=== PATIENT | male | born 1980 | race Caucasian/White ===

== ENCOUNTER 2021-05-24 14:39 | Emergency (ER) | payer OTHER, SELFPAY ==
--- NOTE | ~2021-05-24 | CT_ITS ---
EXAMINATION: CT brain wo con EXAM DATE: 05/24/2021 15:45 INDICATION: Headache, hypertensive. TECHNIQUE: Spiral CT of the head was performed without contrast. Axial, coronal and sagittal images were reviewed. The dose-length product (DLP) for this examination was 605.33 mGy-cm. The exposure w as tailored according to patient size, and iterative reconstruction (ASIR) was used as additional dos e reduction technique. Comparison is made to prior examination from 07/05/2012. FINDINGS: There is no acute intraparenchymal hemorrhage. No evidence of intraparenchymal brain mass lesion. No evidence of acute infarction. There is no mass effect or midline shift. The ventricles are normal in size. There are no extra-axial collections. There are no acute calvarial fractures. T he orbits are unremarkable. Soft tissue is unremarkable. The visualized sinuses and mastoid air ning ls are well aerated. IMPRESSION: 1. No acute intracranial findings. Reviewed, dictated and finalized at location G. T BROKER
[2021-05-24 14:42] VITALS: BP 153/80; PULSE 85; RESP 16; TEMP 36.8; O2SAT 99
--- NOTE | 2021-05-24 14:55 | ED.HA ---
HPI - Headache General Chief Complaint: Headache Stated Complaint: feels bells palsy is acting up Time Seen by Provider: 05/24/21 14:41 History of Present Illness HPI Narrative: 40-year-old male presents to the emergency room with complaints of left facial pain that has been present for 4 days. States pain radiates to jaw, ear, and behind left eye following the distribution of the trigeminal nerve. Pain is worse with palpation. 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 Denies headache denies vision changes denies rhinorrhea. Pain is worse with mastication Related Data Home Medications Medication Instructions Recorded Confirmed albuterol sulfate 90 mcg/actuation 2 puff INHALATION Q4H PRN gm 02/18/19 02/18/19 aerosol inhaler Allergies Allergy/AdvReac Type Severity Reaction Status Date / Time Penicillins Allergy Intermediate SWELLING Verified 08/28/19 16:31 IN EAR CANALS Review of Systems Review of Systems: CONSTITUTIONAL: Denies fever, chills, or sweats. EYES: Denies visual changes, redness, or discharge. ENT: Denies rhinorrhea, congestion, sore throat, or otalgia. CARDIOVASCULAR: Denies chest pain, palpitations, or edema. RESPIRATORY: Denies cough or dyspnea. GASTROINTESTINAL: Denies abdominal pain, nausea, vomiting, or diarrhea. GENITOURINARY: Denies dysuria or hematuria. SKIN: Denies rash or itching. MUSCULOSKELETAL: Denies back pain, joint pain, or myalgia. NEUROLOGIC: Denies headache, numbness, dizziness, or weakness. PSYCHIATRIC: Denies anxiety or depression. PMFSH Past Medical History Medical History Family history of colon cancer in mother Surgical History Surgical History History of appendectomy -2016 Hx of tonsillectomy 1982 Family History Family History Father Acute myocardial infarction, Onset Age: 47 Mother Carcinoma of colon, Onset Age: 37 Social History Social History Smoking status: Former smoker Alcohol intake: current Exam Narrative: GENERAL: Well-appearing, well-nourished, and in no acute distress. HEAD: Normocephalic, atraumatic. EYES: PERRLA and EOMI. ENT: Nares clear, no rhinorrhea or epistaxis. Mucous membranes moist. Oropharynx without tonsillar hypertrophy exudate or other lesions. Bilateral TMs pearly franco nonbulging. Left postauricular tenderness. NECK: Supple. No adenopathy or masses. No carotid bruits or JVD CHEST: Clear to auscultation. No respiratory distress. No wheezes rales or rhonchi HEART: Regular rate and rhythm. No murmur heard. Normal peripheral pulses. ABDOMEN: Soft, nontender, nondistended, normal active bowel sounds. EXTREMITIES: Normal range of motion. No edema. SKIN: Warm, dry, no rash. NEURO: No focal deficits. Alert and oriented x3. PSYCH: Normal mood and affect. Course Course Emergency Course: Head CT demonstrated no acute abnormalities. Patient responded well to 30 mg of Toradol. Vital Signs Vital signs: Vital Signs Temperature 36.8 C 05/24/21 14:42 Pulse Rate 85 05/24/21 14:42 Respiratory Rate 16 05/24/21 14:42 Blood Pressure 153/80 H 05/24/21 14:42 Pulse Oximetry 99 05/24/21 14:42 Temperature 36.8 C 05/24/21 14:42 Pulse Rate 85 05/24/21 14:42 Respiratory Rate 16 05/24/21 14:42 Blood Pressure 153/80 H 05/24/21 14:42 Pulse Oximetry 99 05/24/21 14:42 MDM - Headache MDM Narrative Medical decision making narrative: Head CT demonstrated no acute abnormalities. Patient responded well with 30 mg of Toradol. suspect headache versus early onset of zoster infection versus early trigeminal neuropathy. Will treat patient with anti-inflammatories and short course of valacyclovir follow-up with PCP. Imaging Data Radiologist's impression:
--- NOTE | 2021-05-24 15:02 | PC.NURSE ---
Attempted IV x 2, unsuccessful. Another RN to attempt. Pt to ct via stretcher at this time.
[2021-05-24] MEDS: KETOROLAC 30 MG/ML VIAL (*BKC) IV PUSH (15:27)
[2021-05-24] MEDS: SODIUM CHLORIDE 0.9% IV 1,000 ML 999 ML IV CONT (15:27)
[2021-05-24 16:25] VITALS: BP 142/78; PULSE 78; RESP 18; O2SAT 98
[2021-05-24 16:50] VITALS: BP 140/82; PULSE 68; RESP 17; O2SAT 99
== END 2021-05-24 16:51 | disposition home or self-care (01) ==
PROVIDERS: Emergency Provider Nurse Practitioner Family
DX: R51.9 Headache, unspecified (principal); Z87.891 Personal history of nicotine dependence
CPT/HCPCS: 70450; 96361; 96374; 96375; 99284; J1100; J1885; J7030

== ENCOUNTER 2021-05-29 08:16 | Emergency (ER) | payer OTHER, SELFPAY ==
--- NOTE | ~2021-05-29 | CT_ITS ---
EXAMINATION: CT brain wo con EXAM DATE: 05/29/2021 09:13 INDICATION: unilateral facial weakness. Left-sided headache. TECHNIQUE: Spiral CT of the head was performed without contrast. Axial, coronal and sagittal images were reviewed. The dose-length product (DLP) for this examination was 605.33 mGy-cm. The exposure w as tailored according to patient size, and iterative reconstruction (ASIR) was used as additional dos e reduction technique. Comparison is made to prior examination from 05/24/2021. FINDINGS: There is no acute intraparenchymal hemorrhage. No evidence of intraparenchymal brain mass lesion. No evidence of acute infarction. There is no mass effect or midline shift. The ventricles are normal in size. There are no extra-axial collections. There are no acute calvarial fractures. T he orbits are unremarkable. Soft tissue is unremarkable. The visualized sinuses and mastoid air ning ls are well aerated. IMPRESSION: Unremarkable head CT examination. Reviewed, dictated and finalized at location B. IT COUNSELOR
--- NOTE | 2021-05-29 08:27 | ECG_ITS ---
Measurements Intervals [place] Rate: 87 P: 59 PA: 154 QRS: 72 QRSD: 97 T: 34 QT: 350 QTc: 421 Interpretive Statements SINUS RHYTHM BORDERLINE R WAVE PROGRESSION, ANTERIOR LEADS CONSIDER INFERIOR INFARCT, AGE INDETERMINATE ABNORMAL ECG Electronically Signed On 05-29-2021 13:23:39 ELECTRIC VEHICLE ELECTRICIAN by Bertin Flores D.O.
[2021-05-29 08:28] VITALS: BP 163/92; PULSE 98; RESP 16; TEMP 36.8; O2SAT 100
--- NOTE | 2021-05-29 08:53 | ED.HA ---
HPI - Headache General Chief Complaint: Headache Stated Complaint: facial numbness 05/25 Time Seen by Provider: 05/29/21 08:39 History of Present Illness HPI Narrative: 40-year-old male presents the emergency room with left facial droop that has been present for 3 days. States has had facial pain and associated headache for 1 week. Patient was seen here 3 days ago for similar symptoms, started on naproxen and valacyclovir. Patient states no improvement of symptoms. Patient returns for ongoing headache. Denies any other unilateral weakness. Patient is alert and oriented x3. Related Data Home Medications Medication Instructions Recorded Confirmed albuterol sulfate 90 mcg/actuation 2 puff INHALATION Q4H PRN gm 02/18/19 02/18/19 aerosol inhaler Allergies Allergy/AdvReac Type Severity Reaction Status Date / Time Penicillins Allergy Intermediate SWELLING Verified 08/28/19 16:31 IN EAR CANALS Review of Systems Review of Systems: CONSTITUTIONAL: Denies fever, chills, or sweats. EYES: Denies visual changes, redness, or discharge. ENT: Denies rhinorrhea, congestion, sore throat, or otalgia. CARDIOVASCULAR: Denies chest pain, palpitations, or edema. RESPIRATORY: Denies cough or dyspnea. GASTROINTESTINAL: Denies abdominal pain, nausea, vomiting, or diarrhea. GENITOURINARY: Denies dysuria or hematuria. SKIN: Denies rash or itching. MUSCULOSKELETAL: Denies back pain, joint pain, or myalgia. NEUROLOGIC: Reports headache. Reports left facial weakness PSYCHIATRIC: Denies anxiety or depression. PMFSH Past Medical History Medical History Family history of colon cancer in mother Surgical History Surgical History History of appendectomy -2016 Hx of tonsillectomy 1982 Family History Family History Father Acute myocardial infarction, Onset Age: 47 Mother Carcinoma of colon, Onset Age: 37 Social History Social History Smoking status: Former smoker Alcohol intake: current Exam Narrative: GENERAL: Well-appearing, well-nourished, and in no acute distress. HEAD: Normocephalic, atraumatic. EYES: PERRLA and EOMI. ENT: Nares clear, no rhinorrhea or epistaxis. Mucous membranes moist. Oropharynx without tonsillar hypertrophy exudate or other lesions. Bilateral TMs pearly franco nonbulging NECK: Supple. No adenopathy or masses. No carotid bruits or JVD CHEST: Clear to auscultation. No respiratory distress. No wheezes rales or rhonchi HEART: Regular rate and rhythm. No murmur heard. Normal peripheral pulses. ABDOMEN: Soft, nontender, nondistended, normal active bowel sounds. EXTREMITIES: Normal range of motion. No edema. SKIN: Warm, dry, no rash. NEURO: Left facial droop. Alert and oriented x3. PSYCH: Normal mood and affect. Course Course Emergency Course: Head CT negative for acute abnormalities. Vital Signs Vital signs: Vital Signs Temperature 36.8 C 05/29/21 08:28 Pulse Rate 98 05/29/21 08:28 Respiratory Rate 16 05/29/21 08:28 Blood Pressure 163/92 H 05/29/21 08:28 Pulse Oximetry 100 05/29/21 08:28 Temperature 36.8 C 05/29/21 08:28 Pulse Rate 98 05/29/21 08:28 Respiratory Rate 16 05/29/21 08:28 Blood Pressure 163/92 H 05/29/21 08:28 Pulse Oximetry 100 05/29/21 08:28 MDM - Headache MDM Narrative Medical decision making narrative: 40-year-old returns the emergency room for ongoing headache and worsening left facial droop. Recently diagnosed with Souza's palsy. We will send patient home with a course of steroids, and close follow-up with neurology. Discharge Plan Discharge Clinical Impression: Facial paralysis/[place] palsy Patient Disposition: Home, Self-Care Condition: Stable Instructions: Antibiotic
[2021-05-29] MEDS: METOCLOPRAMIDE HCL INJ 10 MG/2 ML VIAL IV PUSH (08:59)
[2021-05-29] MEDS: diphenhydrAMINE HCl INJ 50 MG/ML VIAL 12.5 MG IV PUSH (08:59)
[2021-05-29] MEDS: KETOROLAC 30 MG/ML VIAL (*BKC) IV PUSH (08:59)
[2021-05-29] MEDS: SODIUM CHLORIDE 0.9% IV 1,000 ML 999 ML IV CONT (09:00)
[2021-05-29 09:33] VITALS: BP 121/71; PULSE 69; RESP 18; TEMP 36.4; O2SAT 100
== END 2021-05-29 09:41 | disposition home or self-care (01) ==
PROVIDERS: Emergency Provider Nurse Practitioner Family
DX: G51.0 Bell's palsy (principal); Z87.891 Personal history of nicotine dependence; R94.31 Abnormal electrocardiogram [ECG] [EKG]
CPT/HCPCS: 70450; 93005; 96361; 96374; 96375; 99284; J1100; J1200; J1885; J2765; J7030

== ENCOUNTER 2022-05-15 09:27 | Outpatient (CLI) | payer OTHER, SELFPAY ==
--- NOTE | 2022-06-07 11:49 | WPDSLEEPSTUD ---
Sleep Study Date of Study: 05/15/22 Ordering Provider: Christen Villalba DO Interpreting Physician: Avelina Palumbo MD Sleep Study Type: CPAP Titration Height: 1.68 m Weight: 140.16 kg Body Mass Index: 49.8 Neck Circumference (inches): 20 [place]: 14 Reason for Sleep Study Hypersomnolence Sleep History Efrem Rasmussen is a 41-year-old man with loud snoring and excessive daytime sleepiness. On 07/10/2021, he had a home sleep test ordered by his dentist showing AHI 82% with desaturation to 78%, 4.2% of the night below 88%. He presents for a full night titration. complains of not feeling rested during day. Feels ready to nap by in the afternoon. He has 19 dreams to make it through day. He occasionally awakens from sleep feeling short of breath. He constantly awakens at night heartburn, constant and coughing. Constantly snores loudly enough that others complain about it. He really has trouble sleeping a cold. He occasionally wakes up gasping for breath at night. He always has breathing problems at night reported to him by others. He constantly sweats excessively at night. He rarely notices his heart pounding or beating irregularly at night. He frequently falls asleep during the day but never involuntarily or while driving. He is a manager sap. He does not have loss of muscle tone with strong emotion. Does not have daytime difficulties due to excessive sleepiness. He does not feel paralyzed on waking or falling asleep. He does not have the dreamlike scenes on waking or falling asleep. He does not feel afraid to go to sleep. He does not have nightmares. Does not remember his dreams. He does not have racing thoughts. He does not feel sad or depressed. He does not have anxiety. He denies muscle tension. He occasionally notices parts of his body jerking. He rarely kicks at night. He does not have crawling or feelings in his legs, and has no leg pain at night. He does not have jaw pain. He does not grind his teeth during sleep. He is not bothered by pain during the day and he is not awakening pain at night. He always wakes up feeling stiff in the morning with sore achy muscles. He frequently wakes up with pain in the neck and spine. He has memory problems and he takes antacids regularly. Normal bedtime is 11:00 p.m., falling asleep immediately. Wakes up 1 or 2 times at night to go to the bathroom. He is able to return to sleep easily. His normal wake up time is 6:00 a.m.. On weekends, bedtime is 1:00 a.m. and he wakes between 9:00 a.m. and 10:00 a.m.. He estimates getting between 6 and 7 hours of sleep at night. He does not take naps in the afternoon or evening. A short nap lasting 10 or 15 minutes is not refreshing. He is usually drowsy for 2 hours after waking. Feels better in the morning compared to other times of day. Habits: Quit tobacco 15 years ago. Caffeine 1 monster drink a day. No alcohol. No recreational substances. [facility] Past Medical History Medical History (Updated 06/07/22 @ 15:20 by Avelina Palumbo MD) Family history of colon cancer in mother GERD (gastroesophageal reflux disease) Hyperlipidemia Surgical History Surgical History History of appendectomy Hx of tonsillectomy 1982 Family History Family History Father Acute myocardial infarction, Onset Age: 47 Mother Carcinoma of colon, Onset Age: 37 Social History Social History Smoking status: Former smoker Additional smoking assessment comments: previous social smoker, quit 10-15 years ago Alcohol intake: current Lack of Transportation: No Lack of Food: Never True Current Housing: I Have Housing Concerned About Future Housing: No Difficulty Paying Gas/Electric Bills: No Difficulty Paying for Meds: No Currently Unempl
[2022-06-07 15:35] VITALS: BMI 49.8
== END 2022-05-16 06:27 | disposition home or self-care (01) ==
LOC: ANHCSM 09:33
PROVIDERS: PCP Family Medicine; Visit Provider Family Medicine
DX: G47.33 Obstructive sleep apnea (adult) (pediatric) (principal)
CPT/HCPCS: 95811

== ENCOUNTER → 2022-10-17 07:44 | Outpatient (CLI) | payer OTHER, SELFPAY ==
--- NOTE | ~2022-10-17 | US_ITS ---
Limited Abdominal Sonogram: Real-time sonographic imaging of the right upper quadrant was performed. Clinical History: Abdominal pain Findings: The liver appears echogenic, with no evidence of mass lesion or bile duct dilatation. Main portal vein demonstrates normal direction of flow. The gallbladder is well distended, with no eviden t gallstone. There are small gallbladder wall polyps measure up to 4 mm. The common bile duct measure s 4 mm. The visualized pancreas, aorta, and IVC are unremarkable. Impression: Subcentimeter gallbladder wall polyps, as above. Probable fatty infiltration of the liver. Reviewed, dictated and finalized at location M. Impression: Subcentimeter gallbladder wall polyps, as above. Probable fatty infiltration of the liver.
== END ==
PROVIDERS: PCP Family Medicine; Visit Provider Nurse Practitioner
DX: R10.9 Unspecified abdominal pain (principal)
CPT/HCPCS: 76705

== ENCOUNTER → 2022-10-23 07:39 | Outpatient (CLI) | payer OTHER, SELFPAY ==
--- NOTE | ~2022-10-23 | US_ITS ---
US abdomen complete DATE: 10/23/2022 08:21 INDICATION: Left upper quadrant abdominal pain TECHNIQUE: Real-time imaging and Doppler analysis of the abdomen COMPARISON: 10/17/2022 Limited abdominal ultrasound examination /01/2019 CT abdomen pelvis FINDINGS: The pancreas is obscured. There is hepatic steatosis. Normal hepatopedal portal venous flow direction. The common bile duct measures 3.5 mm, within normal limits. No gallbladder wall thickening or gallstones are noted. Small gallbladder polyps are again noted. Normal caliber of the abdominal aorta. Inferior vena cava is unremarkable. No renal mass lesion or hydronephrosis is detected. Spleen measures within upper normal limits.. IMPRESSION: Gallbladder polyps Pancreas is obscured Reviewed, dictated and finalized at Location A. Reviewed, dictated and finalized at location L.
== END ==
PROVIDERS: PCP Family Medicine; Visit Provider Family Medicine
DX: R10.12 Left upper quadrant pain (principal); K82.4 Cholesterolosis of gallbladder
CPT/HCPCS: 76700

== ENCOUNTER 2022-11-05 07:57 | Outpatient (CLI) | payer OTHER, SELFPAY ==
--- NOTE | ~2022-11-05 | MR_ITS ---
EXAMINATION: MR renal wo/w con DATE: 11/05/2022 08:56 INDICATION: Acquired cyst of the kidney TECHNIQUE: Magnetic resonance imaging (MRI) of the abdomen was performed without and with 20 mL Multi bill intravenous contrast. Sequences included coronal T2-weighted SS-FSE, coronal and axial FS 2D-F IESTA, axial STIR FSE, axial T2-weighted SS-FSE, axial T2-weighted FS SS-FSE, axial diffusion-weighte d SE, axial dual-echo T1-weighted FSPGR, and axial and coronal T1-weighted LAVA. Postcontrast axial T 1-weighted LAVA images were obtained in a time course. Postcontrast coronal T1-weighted LAVA images w ere obtained. COMPARISON: CT dated 12/10/2018 FINDINGS: Heart size is normal. No pericardial or pleural effusion. Multiple T2 hyperintense splenic lesions wi th delayed enhancement the largest measuring 2.6 cm which is without significant interval change sinc e prior CT most consistent with benign hemangiomas. Mild diffuse hepatic steatosis with small amount of signal loss on opposed phase imaging. Pancreas, right kidney and bilateral adrenal glands are norm al. 9 mm T2 hyperintense nonenhancing cyst at the upper pole of the left kidney. Multiple small likel y cholesterol polyps measuring up to 5 mm scattered throughout the gallbladder. Visualized portions o f bowels are normal with no obstruction. Small fat-containing umbilical hernia. No pathologically enl arged abdominal or upper pelvic lymphadenopathy. T1 hyperintense fat saturating hemangioma at T11. Piotr rebeca are otherwise unremarkable. IMPRESSION: 1. 9 mm simple appearing left renal cyst. 2. Multiple gallbladder polyps measuring up to 5 mm. 3. Diffuse hepatic steatosis. Reviewed, dictated and finalized at location B.
== END 2022-11-05 07:58 | disposition home or self-care (01) ==
PROVIDERS: PCP Family Medicine; Visit Provider Family Medicine
DX: N28.1 Cyst of kidney, acquired (principal); K82.4 Cholesterolosis of gallbladder; K76.0 Fatty (change of) liver, not elsewhere classified
CPT/HCPCS: 74183; A9577

== ENCOUNTER 2022-12-19 00:52 | Day surgery (SDC) | payer OTHER, SELFPAY ==
[2022-12-06 10:52] VITALS: BMI 44.1
[2022-12-19 07:31] VITALS: BP 143/95; PULSE 96; RESP 20; TEMP 36.2; O2SAT 100
[2022-12-19] MEDS: LACTATED RINGERS 1,000 ML 150 ML IV CONT (07:44)
--- NOTE | 2022-12-19 07:58 | WPDANESEPPF ---
Anes - Initial Pre Proc Eval Procedure: Operation Date: 12/19/22 08:45 Proposed Procedures p Esophagogastroduodenoscopy & Colonoscopy - Jermaine Denis MD Date/Time: 12/19/22 07:58 Surgeon: Jermaine Denis MD Pre Op Diagnosis: LUQ pain;Pers hx of colon polyps, Fam hx GI cancer Patient Data Age: 42 Gender: M Height: 1.73 m Weight: 129.6 kg Last Vital Signs Temp 97.2 F L 12/19/22 07:31 Pulse 96 12/19/22 07:31 Resp 20 12/19/22 07:31 BP 143/95 H 12/19/22 07:31 Pulse Ox 100 12/19/22 07:31 O2 Del Method Room Air 12/19/22 07:31 Allergies Allergy/AdvReac Type Severity Reaction Status Date / Time Penicillins Allergy Intermediate SWELLING Verified 12/19/22 07:30 IN EAR CANALS Home Medications Medication Instructions Recorded Confirmed Type albuterol sulfate 90 mcg/actuation 2 puff inhalation Q4H PRN 02/18/19 12/06/22 History aerosol inhaler (Ventolin HFA) Shortness Of Breath CPAP supplies #1 ea 06/11/22 11/28/22 Rx CPAP Rx #1 08/09/22 11/28/22 Rx CPAP Equipment #1 08/29/22 11/28/22 Rx CPAP Equipment #1 11/21/22 11/28/22 Rx Patient hx anesthesia problems: none Family hx anesthesia problems: none Results Review: All pre-operative results and documents have been reviewed as part of the pre-operative evaluation. [facility] Past Medical History Medical History (Updated 11/28/22 @ 13:40 by ANNA Brooks) Family history of colon cancer in mother GERD (gastroesophageal reflux disease) Hyperlipidemia LUQ pain Surgical History Surgical History History of appendectomy Hx of tonsillectomy 1983 Family History Family History Father Acute myocardial infarction, Onset Age: 47 Mother Carcinoma of colon, Onset Age: 37 Social History Social History (Reviewed 11/28/22 @ 13:13 by Guzman Castañeda Smoking status: Former smoker Tobacco type: cigarettes Additional smoking assessment comments: previous social smoker, quit 10-15 years ago Alcohol intake: current Alcohol use details: 5 drinks monthly Substance use: never Substance use type: does not use Lack of Transportation: No Lack of Food: Never True Current Housing: I Have Housing Concerned About Future Housing: No Difficulty Paying Gas/Electric Bills: No Difficulty Paying for Meds: No Currently Unemployed: No Education: High School Diploma/GED Difficulty w/ Childcare or Family Care: No Living arrangements: with family Spiritual care concerns: No Anes - Eval Final PreProcedure Day of Procedure 12/19/22 07:58 Patient weight: morbidly obese Heart: regular rate and rhythm Lungs: clear to auscultation Airway: Mallampati scale class III Neurological: alert and oriented Last oral intake: >/= 8 hours ASA classification: III Emergent: no Anesthetic plan: proceed Anesthesia type and monitoring: general GIVS and standard monitoring Results Review: All pre-operative results and documents have been reviewed as part of the pre-operative evaluation. Informed Consent: The patient's anesthetic plan and its attendant risks and benefits were discussed with the patient/family/POA. Questions were solicited and answers provided to the satisfaction of the patient/family/POA.
--- NOTE | 2022-12-19 08:33 | WPDHPUPDATE1 ---
History and Physical Update Update Date/Time: 12/19/22 08:33 History and Physical has been reviewed, including an updated exam of the patient. There are NO changes in the patient's condition. Risks, benefits, and alternatives have been discussed and questions answered. Patient agrees to proceed with procedure.
--- NOTE | 2022-12-19 08:48 | SUR.OPER ---
EGD start 839 end 44 Colonoscopy start 848
--- NOTE | 2022-12-19 09:08 | SUR.OPER ---
DISTRICT CLAIMS MANAGER used oral suction for excess secretions during procedure.
[2022-12-19 09:11] VITALS: BP 111/63; PULSE 88; RESP 20; O2SAT 100
[2022-12-19 09:21] VITALS: BP 111/64; PULSE 88; RESP 16; O2SAT 100
[2022-12-19 09:31] VITALS: BP 114/62; PULSE 86; RESP 16; O2SAT 100
== END 2022-12-19 09:48 | disposition home or self-care (01) ==
PROVIDERS: PCP Family Medicine; Visit Provider Internal Medicine Gastroenterology
PROC: 0DJ08ZZ Inspection of Upper Intestinal Tract, Via Natural or Artificial Opening Endoscopic (ICD-10-PCS; CPT 43235; principal; 2022-12-19 08:45)
DX: Z12.11 Encounter for screening for malignant neoplasm of colon (principal); D12.2 Benign neoplasm of ascending colon; D12.3 Benign neoplasm of transverse colon; K64.8 Other hemorrhoids; R10.12 Left upper quadrant pain; Z80.0 Family history of malignant neoplasm of digestive organs; Z79.51 Long term (current) use of inhaled steroids; Z87.891 Personal history of nicotine dependence; E66.01 Morbid (severe) obesity due to excess calories; Z68.41 Body mass index [BMI] 40.0-44.9, adult
CPT/HCPCS: 45385; 43239; 88305; J2704; J7120

== ENCOUNTER 2023-06-11 06:59 | Emergency (ER) | payer OTHER, SELFPAY ==
--- NOTE | ~2023-06-11 | CT_ITS ---
CT of the Abdomen and Pelvis: Indication: Abdominal pain Technique: 2.5 mm axial scans were obtained through the abdomen and pelvis following intravenous adm inistration of 100 cc of Omnipaque 350. Dose reduction technique was used on this scan by utilizing a utomated exposure control and iterative reconstruction technique. The dose-length product (DLP) was 1 564.06 mGy-cm. Findings: Scans through the lung bases are unremarkable. The liver, spleen, pancreas, gallbladder, adrenals and kidneys are within normal limits. No evidence of aortic aneurysm. No lymphadenopathy. No bowel obstruction or bowel wall thickening. There is no evidence to suggest acute appendicitis. Images through the pelvis were performed. Urinary bladder unremarkable. No pelvic mass seen. No ascit es. Impression: No significant abnormalities seen. Reviewed, dictated and finalized at [facility]. Impression: No significant abnormalities seen.
[2023-06-11 07:03] VITALS: BP 145/93; PULSE 93; RESP 15; TEMP 36.9; O2SAT 97
--- NOTE | 2023-06-11 07:39 | ED.GENADULT ---
HPI - General Adult General Chief complaint: Unspecified Stated complaint: coughing, i think i pulled something in my abd Time Seen by Provider: 06/11/23 07:16 History of Present Illness HPI narrative: Patient presents with URI symptoms and cough for the last few days, while coughing very hard he thinks that he pulled a muscle in because every time he coughs he has pain to his left abdomen. Related Data Home Medications Medication Instructions Recorded Confirmed albuterol sulfate 90 mcg/actuation 2 puff inhalation Q4H PRN 02/18/19 05/15/23 aerosol inhaler (Ventolin HFA) Shortness Of Breath Allergies Allergy/AdvReac Type Severity Reaction Status Date / Time Penicillins Allergy Intermediate SWELLING Verified 05/15/23 10:37 IN EAR CANALS Review of Systems Review of Systems: CONST: No fever. HEENT: Sore throat C/V: No chest pain RESP: Cough GI: Reports abdominal pain left-sided with cough : No dysuria. M/S: No joint pain. SKIN: No rash. NEURO: [No headache or focal numbness or weakness] PSYCH: [No depression] [facility] Past Medical History Medical History Family history of colon cancer in mother GERD (gastroesophageal reflux disease) Hyperlipidemia LUQ pain Surgical History Surgical History History of appendectomy Hx of tonsillectomy 1982 Family History Family History Father Acute myocardial infarction, Onset Age: 47 Mother Carcinoma of colon, Onset Age: 37 Social History Social History Smoking status: Former smoker Tobacco type: cigarettes Additional smoking assessment comments: previous social smoker, quit 10-15 years ago Alcohol intake: current Alcohol use details: 5 drinks monthly Substance use: never Substance use type: does not use Lack of Transportation: No Lack of Food: Never True Current Housing: I Have Housing Concerned About Future Housing: No Difficulty Paying Gas/Electric Bills: No Difficulty Paying for Meds: No Currently Unemployed: No Education: High School Diploma/GED Difficulty w/ Childcare or Family Care: No Living arrangements: with family Spiritual care concerns: No Exam Narrative: EXAMINATION OF ORGAN SYSTEMS/BODY AREAS: Constitutional: Vital signs per nursing GENERAL: Coughing intermittently HEAD: Normal with no signs of head trauma. EYES: EOMI, conjunctiva normal ENT: Hearing grossly intact LUNGS: Nonlabored breathing. HEART: [Regular rate and rhythm] ABD: [Soft], [nontender to palpation], nondistended. No palpable mass or hernia EXT: Normal range of motion SKIN: [No rashes or lesions.] NEURO: [Alert and oriented x 3. No gross focal sensory or strength deficits.] PSYCH: Normal affect Course Vital Signs Vital signs: Vital Signs Temperature 98.5 F 06/11/23 07:03 Pulse Rate 93 06/11/23 07:03 Respiratory Rate 15 06/11/23 07:03 Blood Pressure 145/93 H 06/11/23 07:03 Pulse Oximetry 97 06/11/23 07:03 Oxygen Delivery Room Air 06/11/23 07:03 Temperature 98.5 F 06/11/23 07:03 Pulse Rate 86 06/11/23 07:48 Respiratory Rate 22 H 06/11/23 07:41 Blood Pressure 145/93 H 06/11/23 07:03 Pulse Oximetry 98 06/11/23 07:41 Oxygen Delivery Room Air 06/11/23 07:03 Medical Decision Making MDM Narrative Medical decision making narrative: 1) Differential diagnosis: Muscle strain, hernia, diverticulitis, gastritis 2) Comorbidities: Diverticulitis 3) External notes reviewed: Prior GI scope, GI note 4) History sources independently obtained from: GI notes 5) Discussion of management with: n/a 6) Independent interpretation of: Labs 7) Diagnostic tests or therapies considered but not ordered: n/a 8) Social determin
[2023-06-11 07:41] VITALS: RESP 22; O2SAT 98
[2023-06-11 07:48] VITALS: PULSE 86
[2023-06-11] MEDS: KETOROLAC 15 MG/ML VIAL (*BKC) IV PUSH (08:24)
[2023-06-11] MEDS: guaiFENesin/CODEINE (*CRX) 200/20 MG 10 ML SYRUP PO (08:24)
[2023-06-11 08:27] LABS: Influenza A QL RT-PCR Positive (Negative); Influenza B QL RT-PCR Negative (Negative); RSV RNA, RT-PCR Negative (Negative); SARS-CoV-2 RNA PCR Negative (Negative)
[2023-06-11 08:36] LABS: Basophils Percent Auto 0.5 % (0.2-1.2); Eosinophils Absolute Auto 0.2 K/mm3 (0-0.3); Eosinophils Percent Auto 2.6 % (0-4.4); Hematocrit 45.9 % (42.0-52.0); Hemoglobin 14.9 g/dL (14.0-18.0); Immature Granulocyte Absolute 0.02 K/mm3 (0.00-0.031); Immature Granulocyte Percent A 0.3 % (0-0.5); Lymphocytes Absolute Auto 2.52 K/mm3 (0.9-3.2); Lymphocytes Percent Auto 41.3 % (18.3-44.2); Mean Corpuscular HGB Conc 32.5 g/dl (32-36); Mean Corpuscular Hemoglobin 27.9 pg (26-34); Mean Corpuscular Volume 85.8 fl (80-100); Mean Platelet Volume 8.7 fl (7.4-10.4); Monocytes Absolute Auto 0.5 K/mm3 (0.1-0.6); Monocytes Percent Auto 8.2 % (2.6-8.5); Neutrophils Absolute Auto 2.9 K/mm3 (1.3-6.7); Neutrophils Percent Auto 47.1 % (45.5-73.1); Platelet Count Result 273 k/mm3 (150-375); Red Blood Count 5.35 M/mm3 (4.6-6.20); Red Cell Distribution Width 13.3 % (11.5-14.5); White Blood Count 6.1 K/mm3 (4.5-10.0)
[2023-06-11 09:04] LABS: Appearance Urine Clear (Clear); Bacteria Urine None Seen /hpf; Bilirubin Urine 1+ (Negative); Blood Urine Negative (Negative); Color Urine Dark Yellow (Yellow); Glucose Urine UA Negative (Negative); Ketones Urine Negative (Negative); Leukocyte Esterase Ur Negative LEU/UL (Negative); Mucus Urine Present /lpf; Need Manual Microscopic Reviewed; Nitrate Urine Negative (Negative); Non Pathogenic Casts 0-2; Protein Urine 1+ mg/dL (Negative); RBC Urine 0-2 /hpf (0-2); Squamous Epithelial Cell Urine None seen /hpf (Few); WBC Urine 0-5 /hpf
[2023-06-11 09:17] LABS: Specific Grav Ur 1.043 (1.001-1.035)
[2023-06-11 09:18] LABS: Add Urine Microscopic? YES
[2023-06-11 09:21] LABS: Alanine Aminotransferase 44 U/L (6-50); Albumin Level 4.4 g/dL (3.5-5.1); Alkaline Phosphatase 85 U/L (38-126); Anion Gap 8 mmol/L (8-16); Aspartate Amino Transferase 52 U/L (17-59); Bilirubin,Total 0.8 mg/dL (0.2-1.3); Blood Urea Nitrogen 20 mg/dL (9-20); Calcium 9.1 mg/dL (8.4-10.2); Carbon Dioxide 25 mmol/L (22-30); Chloride 106 mmol/L (98-107); Estimated CRCL calculation 177 ml/min; Estimated Glomerular Filt Rate > 60; Glucose 109 mg/dL (65-110); Potassium 4.2 mmol/L (3.4-5.0); Sodium 139 mmol/L (137-145)
[2023-06-11 09:29] VITALS: BP 145/95; PULSE 72; RESP 18; TEMP 36.7; O2SAT 98
== END 2023-06-11 09:31 | disposition home or self-care (01) ==
PROVIDERS: Emergency Provider Emergency Medicine; PCP Family Medicine
DX: J11.1 Influenza due to unidentified influenza virus with other respiratory manifestations (principal); R10.9 Unspecified abdominal pain; Z20.822 Contact with and (suspected) exposure to COVID-19; K21.9 Gastro-esophageal reflux disease without esophagitis; E78.5 Hyperlipidemia, unspecified; Z87.891 Personal history of nicotine dependence; Z79.85 Long-term (current) use of injectable non-insulin antidiabetic drugs
CPT/HCPCS: 36415; 74177; 80053; 81001; 85025; 87637; 96374; 99284; A9270; J1885; Q9967

== ENCOUNTER 2023-11-02 11:19 | Emergency (ER) | payer OTHER, SELFPAY ==
[2023-11-02 11:20] VITALS: BP 156/83; PULSE 97; RESP 16; TEMP 36.4; O2SAT 100
[2023-11-02 12:48] LABS: Basophils Absolute Auto 0.1 K/mm3 (0.0-0.1); Basophils Percent Auto 0.6 % (0.2-1.2); Eosinophils Absolute Auto 0.3 K/mm3 (0-0.3); Eosinophils Percent Auto 3.2 % (0-4.4); Hematocrit 45.9 % (42.0-52.0); Immature Granulocyte Absolute 0.08 K/mm3 (0.00-0.031); Immature Granulocyte Percent A 0.9 % (0-0.5); Lymphocytes Absolute Auto 1.94 K/mm3 (0.9-3.2); Lymphocytes Percent Auto 22.8 % (18.3-44.2); Mean Corpuscular HGB Conc 32.7 g/dl (32-36); Mean Corpuscular Hemoglobin 28.1 pg (26-34); Mean Platelet Volume 9.5 fl (7.4-10.4); Monocytes Absolute Auto 0.5 K/mm3 (0.1-0.6); Monocytes Percent Auto 6.4 % (2.6-8.5); Neutrophils Absolute Auto 5.6 K/mm3 (1.3-6.7); Neutrophils Percent Auto 66.1 % (45.5-73.1); Platelet Count Result 270 k/mm3 (150-375); Red Blood Count 5.34 M/mm3 (4.6-6.20); Red Cell Distribution Width 13.2 % (11.5-14.5); White Blood Count 8.5 K/mm3 (4.5-10.0)
[2023-11-02 13:08] LABS: Alanine Aminotransferase 33 U/L (6-50); Albumin Level 4.7 g/dL (3.5-5.1); Alkaline Phosphatase 80 U/L (38-126); Anion Gap 10 mmol/L (4-12); Aspartate Amino Transferase 38 U/L (17-59); Blood Urea Nitrogen 17 mg/dL (9-20); Calcium 8.8 mg/dL (8.4-10.2); Carbon Dioxide 28 mmol/L (22-30); Chloride 100 mmol/L (98-107); Estimated CRCL calculation 154 ml/min; Estimated Glomerular Filt Rate > 60; Glucose 124 mg/dL (65-110); Sodium 138 mmol/L (137-145)
--- NOTE | 2023-11-02 13:59 | ED.GENADULT ---
HPI - General Adult General Chief complaint: Skin/Abscess/Foreign Body Stated complaint: staff in ear, mrsa on neck Time Seen by Provider: 11/02/23 12:08 History of Present Illness HPI narrative: Patient is a 43-year-old male who presents ER with concerns for infection. Over last week he developed swelling of his left ear after initially having little break in the skin to the upper aspect of the ear. He then developed a bump on his neck a couple days ago that he thought was a pimple. He went to be seen was told he likely had a staphylococcal infection. He is started on doxycycline, cephalexin, and mupirocin ointment. Started having swelling around his sideburn today in opted to come in for further evaluation. States he does have ear pain but no difficulty hearing. Pain radiates the top of his head. No fevers or chills or sweats. He is not diabetic. Related Data Home Medications Medication Instructions Recorded Confirmed albuterol sulfate 90 mcg/actuation 2 puff inhalation Q4H PRN 02/18/19 09/11/23 aerosol inhaler (Ventolin HFA) Shortness Of Breath Allergies Allergy/AdvReac Type Severity Reaction Status Date / Time Penicillins Allergy Intermediate SWELLING Verified 11/02/23 11:24 IN EAR CANALS Review of Systems Constitutional: Constitutional: Reports no additional constitutional complaints ENT: Denies nasal congestion and Denies sore throat Comments: Ear pain and swelling, no difficulty hearing Integumentary/Breasts: Skin/Breast: Denies pruritus, Reports erythema, Denies rash and Denies skin ulcer Neurologic: Reports system reviewed and no additional complaints, except as documented PMF Past Medical History Medical History Family history of colon cancer in mother GERD (gastroesophageal reflux disease) Hyperlipidemia LUQ pain Surgical History Surgical History History of appendectomy Hx of tonsillectomy 1982 Family History Family History Father Acute myocardial infarction, Onset Age: 47 Mother Carcinoma of colon, Onset Age: 37 Social History Social History Smoking status: Former smoker Tobacco type: cigarettes Additional smoking assessment comments: previous social smoker, quit 10-15 years ago Alcohol intake: current Alcohol use details: 5 drinks monthly Substance use: never Substance use type: does not use Lack of Transportation: No Lack of Food: Never True Current Housing: I Have Housing Concerned About Future Housing: No Difficulty Paying Gas/Electric Bills: No Difficulty Paying for Meds: No Currently Unemployed: No Education: High School Diploma/GED Difficulty w/ Childcare or Family Care: No Living arrangements: with family Spiritual care concerns: No Exam Narrative: GENERAL: Well-appearing, obese, and in no acute distress. HEAD: Normocephalic, atraumatic. ENT: Mucous membranes moist. Left external ear is swollen and edematous. There is a break in the skin to the upper aspect of the anti helix without purulent drainage. Ear canal normal TM normal home left side. There is no mastoid tenderness or swelling. There is a small circular indurated area along the proximal neck consistent with infected follicle. Palpable nodules over the for side of the face so under the sideburn. This is felt to be lymphadenopathy. CHEST: Clear to auscultation. No respiratory distress. HEART: Regular rate and rhythm. Normal peripheral pulses. EXTREMITIES: Normal range of motion. No edema. NEURO: Alert and oriented x3. PSYCH: Normal mood and affect. Course Course Emergency Course: Suspect there is not adequate coverage for an external ear infection so we will stop the MSSA coverage with cepha
== END 2023-11-02 14:09 | disposition home or self-care (01) ==
PROVIDERS: Emergency Provider Emergency Medicine; PCP Family Medicine
DX: H60.92 Unspecified otitis externa, left ear (principal)
CPT/HCPCS: 36415; 80053; 85025; 99283

== ENCOUNTER 2025-02-10 12:52 | Outpatient (CLI) | payer OTHER, SELFPAY ==
--- OUTSIDE RECORDS SUMMARY | 2025-02-10 13:54 | XMS_ITS | Clinical Summary ---
Author Organization [facility] [place] [address] Address [facility] [place] [address] Care Team Providers Care Windshield Repair Technician Name Role Phone Yoko Stevens DO Primary Care Provider [phone] Yoko Stevens DO Unavailable [phone] Kyle Su MD Unavailable [phone] Allergies Active Allergy Reactions Criticality Noted Date Comments Penicillin Tinnitus 04/30/2022 Penicillins Swelling Medium 03/21/2017 11 years of age, had swollen TM's and caused TMJ from the edema Penicillins Other (See comments) Low 02/09/2021 Ear swelled up, and got TMJ Medications albuterol HFA (PROVENTIL HFA,VENTOLIN HFA,PROAIR HFA) 90 mcg/actuation inhaler Inhale 2 puffs every 6 (six) hours as needed 7 Active cyclobenzaprine (FLEXERIL) 10 mg tabletIndications :Cervical radiculopathy Take 1 tablet (10 mg total) by mouth 3 (three) times a day as needed for muscle spasms 30 tablet 3 Active lidocaine (LIDODERM) 5 %Indications:Cerv ical radiculopathy Place 1 patch on the skin daily Apply to painful area 12 hours per day, remove for 12 hours. 30 patch 3 Active al & mag hydroxide with simethicone-diphe nhydramine-lidoca ine (MAGIC MOUTHWASH) suspension 3-5-0Idirmskxucx: Sore throat Swish and swallow 10 mL every 4 (four) hours as needed (sore throat) 100 mL 4 Active Additional Information Patient not taking.Reported on 10/30/2023 sildenafiL (VIAGRA) 50 mg tablet 4 Active Active Problems Problem Noted Date Diagnosed Date Asthma Souza's palsy Surgical History Surgery Date Site/Laterality Comments TONSILLECTOMY APPENDECTOMY Medical History Medical History Date Comments Asthma Souza's palsy Family History Medical History Relation Name Comments Early Father Efrem Colmenares Heart attack Father Efrem Colmenares Heart disease Father Efrem Colmenares Heart failure Father Efrem Colmenares No Known Problems Maternal Grandfather No Known Problems Maternal Grandmother Cancer Mother Trinity Colmenares Heart attack Paternal Grandmother No Known Problems Sister Relation Name Status Comments Father Efrem Colmenares (Age 47) Maternal Grandfather Maternal Grandmother Mother Trinity Colmenares Paternal Grandmother Sister Alive Social History Tobacco Use Types Packs/Day Years Used Date Smoking Tobacco: Never Assessed Smokeless Tobacco: Never Alcohol Use Standard Drinks/Week Comments Yes 0 (1 standard drink = 0.6 oz pur e alcohol) occasionally Sex and Gender Information Value Date Recorded Sex Assigned at Not on file 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 Gender Identity Not on file Sexual Orientation Not on file Last Filed Vital Signs Vital Sign Reading Time Taken Comments Blood Pressure 148/96 10/30/2023 6:41 PM CDT Pulse 74 10/30/2023 6:41 PM CDT Temperature 37 C (98.6 F) 10/30/2023 6:41 PM CDT Respiratory Rate 20 10/30/2023 6:41 PM CDT Oxygen Saturation 98% 10/30/2023 6:41 PM CDT Inhaled Oxygen Concentration - - Weight 131.5 kg (290 lb) 10/30/2023 6:41 PM CDT Height 172.7 cm (5' 8) 10/30/2023 6:41 PM CDT Body Mass Index 44.09 10/30/2023 6:41 PM CDT Plan of Treatment Health Maintenance Due Date Last Done Comments Colon Cancer Screening-Colonoscopy 1978 Depression Screening 1978 Hepatitis C Screening 1978 DTaP/Tdap/Td Vaccine (1 - Tdap) 1989 Hepatitis B Screening 1996 Regular Well Visit/Exam 18-64 1996 Pneumococcal vaccine <65 (1 of 2 - PCV) 1997 Covid-19 Vaccine (2 - 2024-2 6 season) 2024 08/18/2020 Influenza Vaccine (#1) 2024 HPV Vaccines Aged Out No longer eligi ble based on patient's age to complete this topic Insurance [facility] Care Teams Windshield Repair Technician Relationship Specialty Start Date End Date Yoko Stevens DO PCP - General Family Medicine 04/30/22 Yoko Stevens DO Family Medicine 04/30/22 Kyle Su MD Hospital Technician Cardiology 06/06/21
--- OUTSIDE RECORDS SUMMARY | 2025-02-10 13:54 | XMS_ITS | Clinical Summary ---
Author Organization [facility] Address [address] [place] [id number] Phone Care Team Providers Care Family Protection Specialist Name Role Phone Yoko Stevens DO Primary Care Provider [phone] Allergies Active Allergy Reactions Criticality Noted Date Comments Penicillins Anaphylaxis,Swelling High 11/03/2022 Medications No known medications Social History Tobacco Use Types Packs/Day Years Used Date Smoking Tobacco: Never Assessed Feeling Safe Answer Date Recorded Are you in a relationship wi th someone who hurts you emotionally and/or physically? 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 Gender Identity Not on file Sexual Orientation Not on file Last Filed Vital Signs Vital Sign Reading Time Taken Comments Blood Pressure 143/107 11/03/2022 12:35 PM CDT Pulse 108 11/03/2022 12:35 PM CDT Temperature 37.1 C (98.7 F) 11/03/2022 12:35 PM CDT Respiratory Rate 18 11/03/2022 12:35 PM CDT Oxygen Saturation 100% 11/03/2022 12:35 PM CDT Inhaled Oxygen Concentration - - Weight 131.5 kg (290 lb) 11/03/2022 12:35 PM CDT Height 172.7 cm (5' 8) 11/03/2022 12:35 PM CDT Body Mass Index 44.09 11/03/2022 12:35 PM CDT Plan of Treatment Health Maintenance Due Date Last Done Comments DTAP/TDAP/TD VACCINES (1 - Tdap) 1997 HEPATITIS B VACCINES (1 of 3 - 19+ 3-dose series) 1997 COLORECTAL SCREENING 10/16/2023 Colorectal Cancer Screening 10/16/2023 FIT-DNA Q 3 years 10/16/2023 FIT/FOBT Q 1 year 10/16/2023 Flex Sig/CT Colonography Q 5 years 10/16/2023 INFLUENZA VACCINE (#1) 2024 HPV VACCINES Aged Out No longer eligi ble based on patient's age to complete this topic Insurance [place] [id number] Care Teams Family Protection Specialist Relationship Specialty Start Date End Date Yoko Stevens DO [facility] [address] [place] [address] PCP - General Family Practice 11/03/22
--- OUTSIDE RECORDS SUMMARY | 2025-02-10 13:54 | XMS_ITS | Clinical Summary ---
Author Organization [facility] Address [facility] [place] [address] Care Team Providers Care Hadoop Infrastructure Architect Name Role Phone Yoko Stevens DO Primary Care Provider Allergies Active Allergy Reactions Criticality Noted Date Comments Penicillins Swelling High 2022 Medications No known medications Social History Tobacco Use Types Packs/Day Years Used Date Smoking Tobacco: Never Smokeless Tobacco: Never Tobacco Cessation:Counseling Given: Not Answered Alcohol Use Standard Drinks/Week Comments Not Currently 0 (1 standard drink = 0.6 oz pur e alcohol) Sex and Gender Information Value Date Recorded Sex Assigned at Not on file Legal Sex Male 7:39 PM CDT Gender Identity Not on file Sexual Orientation Not on file Last Filed Vital Signs Vital Sign Reading Time Taken Comments Blood Pressure 137/82 2022 1:24 PM CDT Pulse 93 2022 1:24 PM CDT Temperature 37.7 C (99.9 F) 2022 1:24 PM CDT Respiratory Rate 16 2022 1:24 PM CDT Oxygen Saturation 98% 2022 1:24 PM CDT Inhaled Oxygen Concentration - - Weight 131.5 kg (290 lb) 2022 1:24 PM CDT Height 172.7 cm (5' 8) 2022 1:24 PM CDT Body Mass Index 44.09 2022 1:24 PM CDT Plan of Treatment Health Maintenance Due Date Last Done Comments Colorectal Cancer Screening Colonoscopy (10 Years) 1978 Annual Physical 1981 Hepatitis C 1996 Hepatitis B Vaccines (1 of 3 - 19+ 3-dose series) 1997 COVID-19 Vaccine ( season) 2024 01/13/2022, 06/07/2021, 09/08/2020, Additional history exists Influenza Adult (#1) 2024 01/03/2013 DTaP, Tdap and Td Vaccines (2 - Td or Tdap) 02/18/2029 02/18/2019 Hepatitis A Vaccines Aged Out No long er eligible based on patient's age to complete this topic Meningococcal B Vaccine Aged Out No l onger eligible based on patient's age to complete this topic Meningococcal Vaccine Aged Out No sergio rula eligible based on patient's age to complete this topic Pneumococcal Vaccine: Pediatrics (0 to 5 Years) and At-Risk Patients (6 to 49 Years) Aged Out No longer eligible based on patient's age to complete this topic RSV Immunizations Under 20 Months Aged Out No longer eligible based on patient's age to complete this topic Insurance [facility] Care Teams Hadoop Infrastructure Architect Relationship Specialty Start Date End Date Yoko Stevens DO [address] [place] [address] PCP - General FAMILY PRACTICE 10/15/22
--- OUTSIDE RECORDS SUMMARY | 2025-02-10 13:54 | XMS_ITS | Clinical Summary ---
Author Organization [facility] Address [address] [place] [address] Care Team Providers Care Recovery Coach Name Role Phone Feliciano Barnett MD Primary Care Provider [phone] Source Comments [facility],non-owned Affiliates and Associated Physician Practices is amultiple site organization consisting of ambulatory clinics and hospital sitesin [place], [place], [place] and [place]. This disclosure is being madepursuant to the Care Everywhere program and may not contain all information available regarding this patient. Last updated 17.[facility] Allergies Active Allergy Reactions Criticality Noted Date Comments Penicillins Swelling 03/21/2017 11 years of age, had swollen TM's and caused TMJ from the edema Medications * Be aware that medications may not be up to date on this document. Alwaysverify current medications with the patient. 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 Family History Medical History Relation Name Comments None Known Brother Other - Cardiac Father IA at age 47 None Known Maternal Aunt None Known Maternal Grandfather None Known Maternal Grandmother None Known Maternal Uncle Cancer - Colon Mother None Known Paternal Aunt None Known Paternal Grandfather None Known Paternal Grandmother None Known Paternal Uncle None Known Sister Asthma Neg Hx CVA Neg Hx Cancer - Breast Neg Hx Cancer - Other Neg Hx Cancer - Skin, Melanoma Neg Hx Cancer - Skin, Non Melanoma Neg Hx Eczema Neg Hx Hemophilia Neg Hx Psoriasis Neg Hx Relation Name Status Comments Brother Father Maternal Aunt Maternal Grandfather Maternal Grandmother Maternal Uncle Mother Paternal Aunt Paternal Grandfather Paternal Grandmother Paternal Uncle Sister Social History Tobacco Use Types Packs/Day Years Used Date Smoking Tobacco: Former Smokeless Tobacco: Never Tobacco Cessation:Counseling Given: No Alcohol Use Standard Drinks/Week Comments Not Currently 0 (1 standard drink = 0.6 oz pur e alcohol) Sex and Gender Information Value Date Recorded Sex Assigned at Not on file Legal Sex Male 10:25 AM [employer] Gender Identity Not on file Sexual Orientation Not on file Last Filed Vital Signs Vital Sign Reading Time Taken Comments Blood Pressure 128/82 07/23/2018 10:45 AM CDT Pulse 97 07/23/2018 10:45 AM CDT Temperature 37.1 C (98.8 F) 07/23/2018 10:45 AM CDT Respiratory Rate 16 07/23/2018 10:45 AM CDT Oxygen Saturation 98% 07/23/2018 10:45 AM CDT Inhaled Oxygen Concentration - - Weight 131.5 kg (290 lb) 07/23/2018 10:45 AM CDT Height 172.7 cm (5' 8) 07/23/2018 10:45 AM CDT Body Mass Index 44.09 07/23/2018 10:45 AM CDT Plan of Treatment Health Maintenance Due Date Last Done Comments COLOGUARD (AGES 45-75) - COL ON CA SCREENING 1978 COLON MONITORING 1978 COLONOSCOPY - COLON CA SCREENING 1978 CT COLONOGRAPHY - COLON CA SCREENING 1978 Colorectal Cancer Screening 1978 FIT - COLON CA SCREENING 1978 FLEX SIG - COLON CA SCREENING 1978 LIPID TESTING 1978 HIV SCREENING 1993 HEPATITIS C SCREENING 10/10/1996 DTAP/TDAP/TD VACCINES (1 - Tdap) 1997 HEPATITIS B VACCINE (1 of 3 - 19+ 3-dose series) 1997 PNEUMOCOCCAL VACCINE (1 of 2 - PCV) 1997 DEPRESSION SCREENING 04/01/2024 COVID-19 VACCINE (1 - 2023-2 5 season) 2024 INFLUENZA VACCINE (#1) 2024 ZOSTER VACCINE (1 of 2) 2028 HIB VACCINE Aged Out No longer eligi ble based on patient's age to complete this topic HPV VACCINE Aged Out No longer eligi ble based on patient's age to complete this topic MENINGOCOCCAL (Group B) VACC INE SHARED DECISION-MAKING Aged Out No longer eligibl e based on patient's age to complete this topic MENINGOCOCCAL GROUPS A/C/Y/W VACCINE Aged Out No longer eligible b ased on patient's age to complete this topic Insurance [facility] Address: [address] [address] [place] [address] [facility] [place] [id number] [facility] Member Subscriber Plan / Payer (Ef fective 2016-) Name:Efrem Colmenares Aye Miranda. Relation to Subscriber:Spouse Name:LILLIANA COLMENARES Subscriber ID:Not on file Date of :1980 Payer ID:[id number] (NAIC) Type:[employer] Address: [address] [facility] Member Subscriber Plan / Payer ( fective 2016-) Name:Efrem Colmenares Aye Miranda. Relation to Subscriber:Spouse Name:LILLIANA COLMENARES Subscriber ID:Not on file Date of :1980 Payer ID:[id number] (NAIC) Type:[employer] Address: [address] [facility] Member Subscriber Plan / Payer ( fective 2016-) Name:Yakov Colmenaresmauro Griffiths Jr. Relation to Subscriber:Spouse Name:LILLIANA COLMENARES Subscriber ID:Not on file Date of :1980 Payer ID:[id number] (NAIC) Type:[employer] Address: [address] [facility] Member Subscriber Plan / Payer ( fective 2016-) Name:GradyEfrem Jr. Relation to Subscriber:Spouse Name:LILLIANA COLMENARES Subscriber ID:Not on file Date of :1982 Payer ID:[id number] (NAIC) Type:[employer] Address: [address] [facility] Member Subscriber Plan / Payer ( fective 2016-) Name:Efrem Colmenares Jr. Relation to Subscriber:Spouse Name:LILLIANA COLMENARES Subscriber ID:Not on file Date of :1982 Payer ID:[id number] (NAIC) Type:[employer] Address: [address] [facility] Member Subscriber Plan / Payer ( fective 2016-) Name:Efrem Colmenares Jr. Relation to Subscriber:Spouse Name:LILLIANA COLMENARES Subscriber ID:Not on file Date of :1982 Payer ID:[id number] (NAIC) Type:[employer] Address: [address] C[facility] Member Subscriber Plan / Payer ( fective 2016-) Name:Efrem Colmenares Jr. Relation to Subscriber:Spouse Name:LILLIANA COLMENARES Subscriber ID:Not on file Date of :1982 Payer ID:[id number] (NAIC) Type:[employer] Address: [address] C[facility] Member Subscriber Plan / Payer ( fective 2016-) Name:Efrem Colmenares Jr. Relation to Subscriber:Spouse Name:LILLIANA COLMENARES Subscriber ID:Not on file Date of :1982 Payer ID:[id number] (NAIC) Type:[employer] Address: [address] Member Subscriber Plan / Payer ( fective 2016-Present) Name:GradyEfrem Jr. Relation to Subscriber:Spouse Name:LILLIANA COLMENARES Subscriber ID:Not on file Date of :1982 Payer ID:[id number] (NAIC) Type:[employer] Address: [address] Member Subscriber Plan / Payer (Ef fective 2016-Present) Name:Efrem Colmenares Jr. Relation to Subscriber:Spouse Name:LILLIANA COLMENARES Subscriber ID:Not on file Date of :1982 Payer ID:[id number] (NAIC) Type:[employer] Address: [address] Member Subscriber Plan / Payer ( fective 2016-Present) Name:Efrem Colmenares Jr. Relation to Subscriber:Spouse Name:LILLIANA COLMENARES Subscriber ID:Not on file Date of :1982 Payer ID:[id number] (NAIC) Type:[employer] Address: [address] CARE Member Subscriber Plan / Payer ( fective 2016-Present) Name:GradyEfrem Jr. Relation to Subscriber:Spouse Name:LILLIANA COLMENARES Subscriber ID:Not on file Date of :1982 Payer ID:[id number] (NAIC) Type:[employer] Address: [address] CARE Member Subscriber Plan / Payer ( fective 2016-) Name:GradyEfrem Jr. Relation to Subscriber:Spouse Name:LILLIANA COLMENARES Subscriber ID:Not on file Date of :1982 Payer ID:[id number] (NAIC) Type:[employer] Address: [address] Member Subscriber Plan / Payer ( fective 2016-) Name:Efrem Colmenares Jr. Relation to Subscriber:Spouse Name:LILLIANA COLMENARES Subscriber ID:Not on file Date of :1982 Payer ID:[id number] (NAIC) Type:[employer] Address: [address] [facility] Member Subscriber Plan / Payer ( fective 2016-) Name:Efrem Colmenares Jr. Relation to Subscriber:Spouse Name:LILLIANA COLMENARES Subscriber ID:Not on file Date of :1982 Payer ID:[id number] (NAIC) Type:[employer] Address: [address] [facility] Member Subscriber Plan / Payer ( fective 2016-) Name:Eferm Colmenares Jr. Relation to Subscriber:Spouse Name:LILLIANA COLMENARES Subscriber ID:Not on file Date of :1982 Payer ID:[id number] (NAIC) Type:[employer] Address: [address] [facility] Member Subscriber Plan / Payer (Ef fective 2016-) Name:Efrem Colmenares Jr. Relation to Subscriber:Spouse Name:LILLIANA COLMENARES Subscriber ID:Not on file Date of :1982 Payer ID:[id number] (NAIC) Type:[employer] Address: [address] [facility] Care Teams Recovery Coach Relationship Specialty Start Date End Date Feliciano Barnett MD [address] [place] [address] PCP - General Family Medicine 03/21/17
== END 2025-02-10 12:53 | disposition home or self-care (01) ==
LOC: ANHAUDASC 12:53
PROVIDERS: PCP Family Medicine; Visit Provider Otolaryngology
DX: H90.42 Sensorineural hearing loss, unilateral, left ear, with unrestricted hearing on the contralateral side (principal); H93.13 Tinnitus, bilateral
CPT/HCPCS: 92557; 92567